=== PATIENT | male | born 1980 | race Caucasian/White ===

== ENCOUNTER 2018-11-24 10:41 | Outpatient (CLI) | payer OTHER ==
[2018-11-24 11:49] LABS: eGFR (Non-African) > 60
[2018-11-24 11:50] LABS: HDL 30 mg/dL (>40)
== END 2018-11-24 10:46 | disposition home or self-care (01) ==
LOC: LAB 10:41
PROVIDERS: ATTEND Family Medicine
DX: Z13.220 Encounter for screening for lipoid disorders (principal)
CPT/HCPCS: 36415; 80053; 80061